=== PATIENT | female | born 1960 | race Caucasian/White ===

== ENCOUNTER 2020-07-13 09:43 | Outpatient (CLI) | payer MEDICARE, SELFPAY ==
--- NOTE | ~2020-07-13 | CT_ITS ---
EXAMINATION: CT lung screening DATE: 07/13/2020 10:12 INDICATION: Personal history of tobacco dependence, current smoker with 45 pack year history TECHNIQUE: Computed tomography (CT) of the chest was performed without intravenous contrast. The dose -length product (DLP) was 152.89 mGy-cm. Automated exposure control and iterative reconstruction tech [employer] were employed. COMPARISON: None FINDINGS: There is mild emphysema. A 2 mm nodules present in the right upper lobe on image 30. There is a 2 mm right upper lobe nodule on image 31. A 3 mm nodule is present in the right lower lobe on im age 77. There is mild dependent atelectasis. No focal airspace opacities are identified. There is no pleural effusion or pneumothorax. No pathologically enlarged thoracic lymph nodes are identified. The heart size is normal. There is subendocardial fat deposition in the left ventricular apex, consisten t with prior myocardial infarction. There is mild thoracic spondylosis. IMPRESSION: 1. Lung-RADS category 2: Benign appearance or behavior. Continue annual screening with noncontrast lo w-dose chest CT in 12 months. Reviewed, dictated and finalized at location A. IMPRESSION: 1. Lung-RADS category 2: Benign appearance or behavior. Continue annual screeni ng with noncontrast low-dose chest CT in 12 months.
== END 2020-07-13 09:44 | disposition home or self-care (01) ==
LOC: ANHIMG 09:50
PROVIDERS: PCP Physician Assistant; Visit Provider Physician Assistant
DX: F17.210 Nicotine dependence, cigarettes, uncomplicated (principal); Z12.2 Encounter for screening for malignant neoplasm of respiratory organs
CPT/HCPCS: G0297

== ENCOUNTER 2020-07-13 11:33 | Emergency (ER) | payer MEDICARE, SELFPAY ==
[2020-07-13 11:53] VITALS: BP 117/77; PULSE 108; RESP 18; TEMP 37; O2SAT 100
--- NOTE | 2020-07-13 12:07 | ED.BACK ---
HPI - Back Pain/Injury General Chief Complaint: Back Pain/Injury Stated Complaint: pain i n th buttocks History of Present Illness HPI Narrative: This a 59-year-old that comes in complaining of back pain. Patient states that she has a chronic history of back pain and she has a history of sciatica. Patient denies her sciatica shooting down her right side of her buttocks this is the first time is been more severe. Patient states that she is going to be seen by a pain doctor she is taking Flexeril for her symptoms and some Tylenol which have not resolved her pain. Patient states that it is hard for her to get up and she does not know what to do Related Data Home Medications Medication Instructions Recorded Confirmed aripiprazole [Abilify] 10 mg PO DAILY 07/13/20 07/13/20 bupropion HCl [Wellbutrin SR] 150 mg PO BID 07/13/20 07/13/20 buspirone 15 mg PO TID 07/13/20 07/13/20 clonidine HCl [Catapres] 0.1 mg PO BID 07/13/20 07/13/20 cyclobenzaprine 10 mg PO BID 07/13/20 07/13/20 duloxetine [Cymbalta] 60 mg PO DAILY 07/13/20 07/13/20 furosemide [Lasix] 40 mg PO BID 07/13/20 07/13/20 gabapentin [Neurontin] 300 mg PO TID 07/13/20 07/13/20 hydroxyzine HCl 50 mg PO QID 07/13/20 07/13/20 montelukast [Singulair] 10 mg PO DAILY 07/13/20 07/13/20 omeprazole magnesium [Prilosec OTC] 40 mg PO DAILY 07/13/20 07/13/20 simvastatin [Zocor] 20 mg PO DAILY 07/13/20 07/13/20 spironolactone [Aldactone] 50 mg PO BID 07/13/20 07/13/20 trazodone 150 mg PO HS 07/13/20 07/13/20 Allergies Allergy/AdvReac Type Severity Reaction Status Date / Time haloperidol Allergy Mild MUSCLE Unverified 05/15/18 14:43 SPASMS, TONGUE SWELLING, JERKING latex Allergy Unknown Itching Verified 07/13/20 12:00 orange Allergy Unknown Unknown Verified 07/13/20 12:00 Animal Dander Allergy Mild RESP Uncoded 05/15/18 14:43 Dust Allergy Mild SNEEZE, Uncoded 05/15/18 14:43 STUFFY NOSE, EGG WHITE Allergy Mild RESP Uncoded 05/15/18 14:43 oranges Allergy Mild Other Uncoded 05/15/18 14:45 POLLENEXTRACT Allergy Mild Unknown Uncoded 07/13/20 12:00 ANTIPSYCHOTICS Allergy Unknown Unknown Uncoded 07/13/20 12:00 EGGS, TEA, ORANGES Allergy Unknown Unknown Uncoded 07/13/20 12:00 HALDOL, BANDAIDS Allergy Unknown Unknown Uncoded 07/13/20 12:00 HALOPERIDOL LACTATE (Generic Allergy Unknown Y Uncoded 06/15/05 09:15 Allergy) Review of Systems Review of Systems: Narrative: CONSTITUTIONAL: Denies fever, chills, or sweats. EYES: Denies visual changes, redness, or discharge. ENT: Denies rhinorrhea, congestion, sore throat, or otalgia. CARDIOVASCULAR:Denies chest pain, palpitations, or edema. RESPIRATORY: Denies cough or dyspnea. GASTROINTESTINAL: Denies abdominal pain, nausea, vomiting, or diarrhea. GENITOURINARY: Denies dysuria or hematuria. SKIN:[Denies rash or itching. MUSCULOSKELETAL: Positive back pain, joint pain, or myalgia. NEUROLOGIC: Denies headache, numbness, or weakness. PSYCHIATRIC:Denies anxiety or depression [facility] Family History Family History (Updated 06/18/17 @ 11:49 by DOCTOR UNKNOWN) Mother Patient's mother is in good health Father Family history of malignant neoplasm Patient's father is Other Diabetes mellitus Family history of cardiovascular disease Social History Social History Smoking status: Heavy tobacco smoker Alcohol intake: never Gender identity (if verbalized by the patient): Female Comments At time as signature, I have reviewed and agree with nursing past medical, social, surgical and family history. Please see nursing chart for further information. There is no relevant family history pertinent to the presenting complaint. Exam Narrative: Exam Narrative: GENERAL:Well-appearing, well-nourished, and in no acute distress. HEAD:Normocephalic, atraumatic. EYES: PERRLA and EOMI. ENT: Nares clear, no rhinorrhea or epistaxis. Mucous membranes moist. NECK: Supple. CHEST: Clear to auscultati
== END 2020-07-13 12:16 | disposition home or self-care (01) ==
PROVIDERS: Emergency Provider Nurse Practitioner Family; PCP Physician Assistant
DX: M54.31 Sciatica, right side (principal); S39.012A Strain of muscle, fascia and tendon of lower back, initial encounter; X58.XXXA Exposure to other specified factors, initial encounter; F17.200 Nicotine dependence, unspecified, uncomplicated; E78.00 Pure hypercholesterolemia, unspecified; K21.9 Gastro-esophageal reflux disease without esophagitis; F41.9 Anxiety disorder, unspecified; F32.9 Major depressive disorder, single episode, unspecified; I50.9 Heart failure, unspecified
CPT/HCPCS: 99213; G0463

== ENCOUNTER → 2020-07-20 11:55 | Outpatient (CLI) | payer MEDICARE, SELFPAY ==
--- NOTE | ~2020-07-20 | XR_ITS ---
XR lumbar spine 2-3V DATE: 07/20/2020 12:21 INDICATION: Left low back pain, left sciatica TECHNIQUE: AP, lateral, coned lateral lumbosacral views COMPARISON: 03/04/2017 lumbar spine FINDINGS: Moderate osteopenia. There is grade 1 anterolisthesis at L4-5 due to degenerative change at the apophyseal joints. There is mildly severe degenerative disease at L4-5 and L5-S1. Moderate degenerative disease at L1-2, mild degenerative disease at L2-3 and L3-4. No fracture or bone destruction is evident. Included T12-L5 pedicles are intact. The sacroiliac joints are normal. IMPRESSION: Grade 1 anterolisthesis at L4-5 due to degenerative change at the apophyseal joints Multilevel degenerative disc disease, most prominent at L4-5 and L5-S1 Reviewed, dictated and finalized at location A. IMPRESSION: Grade 1 anterolisthesis at L4-5 due to degenerative change at the a pophyseal joints Multilevel degenerative disc disease, most prominent at L4-5 and L5-S1
== END ==
PROVIDERS: PCP Physician Assistant; Visit Provider Physician Assistant
DX: M51.36 Other intervertebral disc degeneration, lumbar region (principal)
CPT/HCPCS: 72100

== ENCOUNTER 2020-08-02 10:40 | Outpatient (CLI) | payer MEDICARE, SELFPAY ==
--- NOTE | ~2020-08-02 | MM_ITS ---
EXAMINATION: MM screening lucero BI w bridger HISTORY: Screening mammogram TECHNIQUE: Craniocaudal and mediolateral oblique 3-D tomosynthesis images were obtained and synthetic 2-D images were generated. CAD analysis was submitted and interpreted. COMPARISON: 07/05/2017, lateral digital screening mammogram examinations BREAST PARENCHYMAL COMPOSITION: There are scattered areas of fibroglandular density. FINDINGS: Stable mild fibroglandular asymmetry.. There is no evidence of suspicious mass, calcificati on, or architectural distortion to suggest malignancy in either breast. There has been no suspicious interval change. IMPRESSION: 1. No mammographic evidence of malignancy. 2. Recommend routine screening mammography in one year. BI-RADS Category 2: Benign finding(s). Reviewed, dictated and finalized at location A.
== END 2020-08-02 10:41 | disposition home or self-care (01) ==
LOC: ANHIMG 10:44
PROVIDERS: PCP Physician Assistant; Visit Provider Physician Assistant
DX: Z12.31 Encounter for screening mammogram for malignant neoplasm of breast (principal)
CPT/HCPCS: 77063; 77067

== ENCOUNTER 2020-09-30 10:41 | Outpatient (CLI) | payer MEDICARE, SELFPAY ==
--- NOTE | ~2020-09-30 | MR_ITS ---
EXAMINATION: MR lumbar spine wo con DATE: 09/30/2020 11:26 INDICATION: Lumbago. TECHNIQUE: Magnetic resonance imaging (MRI) of the lumbar spine was performed without intravenous con trast. Sequences included sagittal T2-weighted FSE, sagittal T2-weighted FS FSE, sagittal T1-weighted FSE, and axial T2-weighted FSE. COMPARISON: Lumbar spine MRI 03/04/2017 FINDINGS: There is 6 degrees dextrocurvature of lumbar spine. There is 4 mm retrolisthesis of L1 on L 2, L2 on L3, and L3 on L4, 6 mm anterolisthesis of L4 on L5, and 3 mm anterolisthesis of L5 on S1. Ve rtebral body heights are normal. There is moderately decreased disc height at L1-L2 and L2-L3, mildly decreased disc height at L3-L4, and moderately decreased disc height at L4-L5 and L5-S1. The distal spinal cord signal intensity is normal. The conus medullaris is at T12-L1. There is no kidney in the right renal fossa. The following disc levels are specifically discussed: L1-L2: The disc is bulging. There is moderate right and severe left facet joint osteoarthritis. There is mild right and moderate left neural foraminal stenosis. There is mild central canal stenosis. L2-L3: The disc is bulging. There is severe right and moderate left facet joint osteoarthritis. There is mild right and moderate left neural foraminal stenosis. There is mild central canal stenosis. L3-L4: The disc is bulging. There is severe bilateral facet joint osteoarthritis. There is mild bilat eral neural foraminal stenosis. There is mild central canal stenosis. L4-L5: The disc is bulging. There is severe bilateral facet joint osteoarthritis. There is moderate r ight and mild left neural foraminal stenosis. There is mild central canal stenosis. L5-S1: The disc is bulging and has an annular fissure. There is severe bilateral facet joint osteoart hritis. There is moderate bilateral neural foraminal stenosis. There is mild central canal stenosis. IMPRESSION: 1. Moderate lumbar spondylosis, worsened from 02/28/2017. 2. No kidney in right renal fossa. Reviewed, dictated and finalized at location A. ARY SPECIAL EDUCATOR
== END 2020-09-30 10:42 | disposition home or self-care (01) ==
LOC: ANHIMG 10:47
PROVIDERS: PCP Physician Assistant; Visit Provider Nurse Practitioner Family
DX: M47.817 Spondylosis without myelopathy or radiculopathy, lumbosacral region (principal); M48.07 Spinal stenosis, lumbosacral region
CPT/HCPCS: 72148

== ENCOUNTER 2021-02-06 14:15 | Outpatient (RCR) | payer MEDICARE, SELFPAY ==
--- NOTE | 2020-12-13 10:15 | PTOPEVAL ---
PHYSICAL THERAPY EVALUATION AND PLAN OF CARE 12-13-20 Thank you for referring Bailey Santiago to [facility].? She is scheduled to be seen for therapy? 2 x/week for 4 weeks. Treatments will begin with aquatic therapy, for the buoyancy effects of the water on her movement and progress to land treatments as tolerated. Please review, sign, date and return this plan of care KAI. I agree with and certify that the following plan of care is medically necessary. Referring Physician Date Attending Provider: CHRISTINA SharifPT Outpatient Evaluation Start: 12/13/20 09:10 Document 12/13/20 09:00 PAT (Rec: 12/13/20 10:15 PAT [id number]) Outpatient Past Medical History Past Medical History Source of Past Medical History Recalled from Previous Visit, Confirmed with Patient/Family Neurological History Hx Neurological Disorders No Significant History Cardiovascular History Hx Congestive Heart Failure Yes: follow with jira administrator PRN Hx Hypercholesterolemia Yes: meds Respiratory History Hx Chronic Obstructive Pulmonary Disease Yes: inhaler and meds (COPD) Hx Other Respiratory Disorders Yes: smoker Gastrointestinal History Hx Gastroesophageal Reflux Disease Yes Hx Irritable Bowel Yes Genitourinary History Hx Other Genitourinary Disorders Yes: kidney disease- stage 3; Musculoskeletal History Hx Back Pain Yes: sciatica Hx Degenerative Disk Disease Yes: lumbar Hx Other Musculoskeletal Disorders Yes: pain shoulders,hands, wrists; fibromyalgia Hematological History Hx Hematological Disorders No Significant History Endocrine History Hx Endocrine Disorders No Significant History HEENT History Hx Other HEENT Disorders Yes: chronic sinusitis Integumentary History Hx Skin Disorders No Significant History Reproductive History Hx Post Menopausal Yes Psychosocial History Hx Anxiety Yes: meds Hx Depression Yes: meds Hx Other Psychiatric Disorders Yes: working with therapist Pain History Has Past Pain Affected Your Daily Life Yes Anesthesia History Hx Anesthesia Reactions No Significant History Evaluation Information Problem Diagnosis low back pain, lumbar radiculopathy Onset Jul 2020 Subjective Information chronic low back pain; Query Text:As Reported By Patient/ receiving injections into back Family for pain; have done water exercises long time ago for her back and it helped; do some stretches for back, standing and moving around; have been going to
--- NOTE | 2021-01-10 16:27 | PCPTNOTE ---
pt called and canceled today's reeval;
--- NOTE | 2021-01-13 10:51 | PCPTNOTE ---
Patient came in, however, received a phone call & had to leave to take care of a family members. So,today's scheduled appointment had to be cancelled.
--- NOTE | 2021-01-17 09:33 | PCPTNOTE ---
Patient called & cancelled scheduled appointment this date at her appointment time stating she wasn't going to be able to make it but will be here for her appointment on .
--- NOTE | 2021-01-30 10:40 | PTOPEVAL ---
PHYSICAL THERAPY RE-EVALUATION AND UPDATED PLAN OF CARE 01-30-21 Refer to the clinical summary below, for her status today, compared to the initial evaluation. Continue PT treatment 2x/week for 4 weeks, with aquatic exercises, for the buoyancy effects of the water and ease of movement for assisting her mobility due to pain. Thank you for referring Bailey Santiago to [facility].? Please review, sign, date and return this plan of care [facility]. I agree with and certify that the following plan of care is medically necessary. Referring Physician Date Attending Provider: CHRISTINA Sharif Document 01/30/21 10:01 PAT (Rec: 01/30/21 10:39 PAT [id number]) Assessment Status Re-evaluation Subjective Information Bailey reports: like the water Query Text:As Reported By Patient/ exercises, they make her feel Family better and have less pain when get out the water; had injection recently in L low back/hip area- helped her pain ; has tried to do her home exercises, but not always get done due to too much going on and pain worse; would like to continue therapy. Pain Assessment Timing of Pain Assessment Timing of Pain Assessment Assessment Pain Scale Pain Scale Used Numeric (1 - 10) Self Report Pain Assessment Bilateral Back Reported Pain Level 5 Pain Description Aching,Sharp Radicular Pain Location L LE-to ankle,varies- but is less; R LE- no pain Pain Frequency Chronic,Continuous Other Pain Description sharp pain if move wrong way; Lowest Pain Intensity 3 Greatest Pain Intensity 8 Pain Aggravating Factors Walking,Weight Bearing/ Standing Pain Behaviors Anxious,Guarding Pain Score Pain Score 5: Self Report Additional Pain Score Comments Oswestry self assessment functional score 52% limitation in activity level; have not been doing much activity- clean house once/ week; when stand- pain immediate, due to pain in feet, back and L hip; Interventions Used Interventions Used By Clinicians Exercise Pain Relief Interventions Used By Inactivity/Rest,Medication, Patient Position Change Other Alleviating Interventions tylenol and ibuprofen daily; Lower Extremity Range of Motion General Lower Extremity Range of Motion Gross Lower Extremity Range of Motion supine R hip flexion 95', IR Comments
--- NOTE | 2021-02-09 13:50 | PCPTNOTE ---
Patient did not show up for scheduled appointment this date; called patient who answered the phone stating her mother Saturday forgot to call and cancel appointment due to arrangements.
--- NOTE | 2021-02-14 10:11 | PCPTNOTE ---
Patient called & cancelled scheduled appointment this date due to not feeling well.
--- NOTE | 2021-02-16 11:16 | PCPTNOTE ---
Patient called & cancelled scheduled appointment this date due to not feeling well.
--- NOTE | 2021-02-20 11:45 | PCPTNOTE ---
Patient did not show up for scheduled appointment this date; called and left voicemail for reminder call for next appointment 02/23 @ 11am.
--- NOTE | 2021-02-23 11:33 | PCPTNOTE ---
Patient called & cancelled all scheduled appointments at this time stating she has to much going on in her personal life to stay consistent with therapy. Understands she will need a new PT order to return when ready. PT notified.
--- NOTE | 2021-02-24 16:03 | PCPTNOTE ---
PHYSICAL THERAPY DISCHARGE 02-24-21 Attending Provider: ENE Sharif- Patient:Bailey Santiago Date of :1960 Ms. Santiago called yesterday and canceled her remaining PT appointments due to have too much going on at this time. Bailey has received 6 PT sessions, from December 13 to February 06, for the diagnosis of lumbar radiculopathy. She called and canceled 5 and did not show for 2 appointments. The goals were not assessed. Thank you for referring Ms. Santiago to [facility]. Please review, sign, date and return this discharge summary KAI. I have been updated about the patient's current status and I agree with discharge from the above service at this time. Referring Physician Date
== END 2021-02-27 10:31 | disposition home or self-care (01) ==
LOC: ANHPT 14:15
PROVIDERS: PCP Physician Assistant; Visit Provider Nurse Practitioner Family
DX: M54.5 Low back pain (principal); M54.16 Radiculopathy, lumbar region
CPT/HCPCS: 97110; 97113; 97161

== ENCOUNTER → 2021-09-19 10:01 | Outpatient (CLI) | payer MEDICARE, SELFPAY ==
--- NOTE | ~2021-09-19 | CT_ITS ---
EXAMINATION: CT lung screening DATE: 09/19/2021 10:21 INDICATION: Nicotine dependence TECHNIQUE: Computed tomography (CT) of the chest was performed without intravenous contrast. The dose -length product was 149.79 mGy-cm. Automated exposure control and iterative reconstruction technique were employed. COMPARISON: CT dated 07/13/2020 FINDINGS: Heart size normal. No thoracic lymphadenopathy. No significant pleural or pericardial effus ion. Stable 2-3 mm bilateral nodules, largest measuring 3 mm in the right lower lobe, image 80. No en dobronchial lesions. There is mild emphysema. Mild thoracic spondylosis. The upper abdomen is grossly unremarkable. IMPRESSION: 1. Lung-RADS category 2: Benign appearance or behavior. Continue annual screening with noncontrast lo w-dose chest CT in 12 months. Reviewed, dictated and finalized at location A. UNICATIONS OFFICER IMPRESSION: 1. Lung-RADS category 2: Benign appearance or behavior. Continue annual screeni ng with noncontrast low-dose chest CT in 12 months.
== END ==
PROVIDERS: PCP Physician Assistant; Visit Provider Physician Assistant
DX: F17.210 Nicotine dependence, cigarettes, uncomplicated (principal)
CPT/HCPCS: 71271

== ENCOUNTER 2022-02-22 14:41 | Outpatient (CLI) | payer MEDICARE, SELFPAY ==
--- NOTE | ~2022-02-22 | US_ITS ---
EXAMINATION: US venous doppler [facility] DATE: 02/22/2022 15:44 INDICATION: Left calf pain. TECHNIQUE: Grayscale ultrasound images without and with compression and Doppler ultrasound images of the left lower extremity veins were obtained. COMPARISON: None. FINDINGS: The visualized portions of left common femoral vein, profunda (deep) femoral vein, femoral vein, popl iteal vein, peroneal veins, posterior tibial veins, and greater saphenous vein outflow are patent. Th ere is thrombus in left lesser saphenous vein. IMPRESSION: 1. No deep venous thrombosis. 2. Thrombus in left lesser saphenous vein, which is a superficial vein. Reviewed, dictated and finalized at location A.
== END 2022-02-22 14:42 | disposition home or self-care (01) ==
LOC: ANHIMG 14:42
PROVIDERS: PCP Physician Assistant; Visit Provider Physician Assistant
DX: M79.662 Pain in left lower leg (principal); I82.812 Embolism and thrombosis of superficial veins of left lower extremity
CPT/HCPCS: 93971

== ENCOUNTER 2022-04-17 11:15 | Outpatient (RCR) | payer MEDICARE, SELFPAY ==
--- NOTE | 2022-04-03 16:02 | PTOPEVAL ---
PHYSICAL THERAPY INITIAL EVALUATION. Thank you for referring Bailey Santiago to [facility].? The patient is scheduled to be seen for therapy?1-2 x/week for 6 weeks. Please review, sign, date and return this plan of care KAI. I agree with and certify that the following plan of care is medically necessary. Referring Physician Date Attending Provider: Muna Calixto, PA *PT Outpatient Evaluation Start: 04/03/22 Evaluation Information Diagnosis L sided low back pain Onset chronic Subjective Information Pt states she has chronic low Query Text:As Reported By Patient/ back pain that also causes her Family hip and knee to hurt on the L side. She states she has terrible arthritis in her entire back. She states she has sciatica that is terrible. She is seeing pain management but is unable to take any medication other than Tylenol due to being on a blood thinners due to a current DVT. Pt states she sits and sleeps in a recliner but does get up frequently throughout the day. Pt states she take a muscle relaxer daily and Tylenol every 4 hours. She states she also has fibromyalgia. Pt states she has sit for 10 minutes without pain. Prior Level of Function Home Type House,Single Level Environmental Barriers Stairs, 2-4 Pain Assessment Self Report Pain Assessment Lower Back Reported Pain Level 5 Pain Description Aching,Radiating,Tightness Pain Radiation Left Leg Pain Frequency Chronic,Intermittent Lowest Pain Intensity 3 Greatest Pain Intensity 8 Pain Aggravating Factors ADL's,Exercise/Activity, Lifting,Walking Pain Relief Interventions Used By Medication Patient Lumbar ROM Lumbar Flexion (0-90) 60 Lumbar Flexion Active Ankle Lumbar Extension (0-40) 30 Lateral Flexion reaches to 3in above lateral Query Text:Active Hands to: knee joint line carleen Lateral Rotation Right (0-45) 20 Lateral Rotation Left (0-45) 20 Lower Extremity Range of Motion General Lower Extremity Range of Motion WFL/Left,WFL/Right Lower Extremity Muscle Strength Testing Gross Lower Extremity Strength L hip flex
--- NOTE | 2022-04-24 11:25 | PCPTNOTE ---
Patient called & cancelled scheduled appointment this date due to not having transportation.
--- NOTE | 2022-05-01 10:16 | PCPTNOTE ---
Patient called & cancelled scheduled appointment this date due to not feeling well
--- NOTE | 2022-05-08 11:44 | PCPTNOTE ---
Attending Provider: Muna Calixto, PA Patient:Bailey Santiago Date of :1960 PHYSICAL THERAPY DISCHARGE SUMMARY. Patient called the clinic this morning and states she would like to cancel her remaining appointments and be discharged from therapy at this time. She states it is too difficult for her to make it to therapy. Home health PT could be a good option for this patient. Patient?s initial visit was on 03/28/2022 and she had a total of 2 visits. The goals have been not met. Thank you for referring this patient to [facility]. Please review, sign, date and return this discharge summary KAI. I have been updated about the patient's current status and I agree with discharge from the above service at this time. Referring Physician Date
== END 2022-05-08 14:24 | disposition home or self-care (01) ==
LOC: ANHPT 11:15
PROVIDERS: PCP Physician Assistant; Visit Provider Physician Assistant
DX: M54.42 Lumbago with sciatica, left side (principal)
CPT/HCPCS: 97110; 97112; 97161; 97530

== ENCOUNTER 2022-08-08 12:26 | Outpatient (CLI) | payer MEDICARE, SELFPAY ==
--- NOTE | ~2022-08-08 | US_ITS ---
EXAMINATION: US venous doppler [facility] DATE: 08/08/2022 13:22 INDICATION: Acute superficial venous thrombosis of the left lower limb TECHNIQUE: Ruiz scale images without and with compression and Doppler images of the left lower extrem ity veins were obtained. COMPARISON: 02/22/2022 FINDINGS: The left common femoral vein, profunda femoral vein, femoral vein, popliteal vein, peroneal trunk, posterior tibial veins, and greater saphenous vein are patent. IMPRESSION: 1. Patent left lower extremity veins. No evidence of deep venous thrombosis. Reviewed, dictated and finalized at location A.
== END 2022-08-08 12:27 | disposition home or self-care (01) ==
PROVIDERS: PCP Physician Assistant; Visit Provider Internal Medicine Medical Oncology
DX: I82.812 Embolism and thrombosis of superficial veins of left lower extremity (principal)
CPT/HCPCS: 93971

== ENCOUNTER 2023-05-07 10:37 | Outpatient (CLI) | payer MEDICARE, SELFPAY ==
--- NOTE | ~2023-05-07 | CT_ITS ---
EXAMINATION: CT lung screening DATE: 05/07/2023 11:07 INDICATION: Personal history of nicotine dependence, current smoker with 45 pack year history TECHNIQUE: Computed tomography (CT) of the chest was performed without intravenous contrast. The dose -length product (DLP) was 126.68 mGy-cm. Automated exposure control and iterative reconstruction tech [employer] were employed. COMPARISON: 09/19/2021 FINDINGS: There is mild emphysema. There are stable right lung nodules measuring up to 3 mm. The lung s are free of acute opacities. No pleural effusion or pneumothorax. No pathologically enlarged thorac ic lymph nodes are identified. The heart size is normal. Subendocardial fat deposition in the left ve ntricular apex is consistent with prior myocardial infarction. There is moderate thoracic spondylosis . IMPRESSION: 1. Lung-RADS category 2: Benign appearance or behavior. Continue annual screening with noncontrast lo w-dose chest CT in 12 months. Reviewed, dictated and finalized at location L. IMPRESSION: 1. Lung-RADS category 2: Benign appearance or behavior. Continue annual screeni ng with noncontrast low-dose chest CT in 12 months.
== END 2023-05-07 10:38 | disposition home or self-care (01) ==
PROVIDERS: PCP Physician Assistant; Visit Provider Physician Assistant
DX: Z12.2 Encounter for screening for malignant neoplasm of respiratory organs (principal); F17.210 Nicotine dependence, cigarettes, uncomplicated
CPT/HCPCS: 71271

== ENCOUNTER 2023-07-17 14:05 | Outpatient (CLI) | payer MEDICARE, SELFPAY ==
--- NOTE | ~2023-07-17 | MM_ITS ---
EXAMINATION: MM screening lucero BI w bridger HISTORY: Screening mammogram TECHNIQUE: Craniocaudal and mediolateral oblique 3-D tomosynthesis images were obtained and synthetic 2-D images were generated. CAD analysis was submitted and interpreted. COMPARISON: 08/02/2020, 07/05/2017 bilateral screening mammogram examinations BREAST PARENCHYMAL COMPOSITION: There are scattered areas of fibroglandular density. FINDINGS: Stable mild fibroglandular asymmetry. There is no evidence of suspicious mass, calcificatio n, or architectural distortion to suggest malignancy in either breast. There has been no suspicious i nterval change. IMPRESSION: 1. No mammographic evidence of malignancy. 2. Recommend routine screening mammography in one year. BI-RADS Category 2: Benign finding(s). Reviewed, dictated and finalized at location A.
== END 2023-07-17 14:06 | disposition home or self-care (01) ==
PROVIDERS: PCP Physician Assistant; Visit Provider Physician Assistant
DX: Z12.31 Encounter for screening mammogram for malignant neoplasm of breast (principal)
CPT/HCPCS: 77063; 77067

== ENCOUNTER 2023-10-23 11:46 | Outpatient (CLI) | payer MEDICARE, SELFPAY ==
--- NOTE | ~2023-10-23 | XR_ITS ---
EXAMINATION:XR cervical spine 4-5V DATE: 10/23/2023 12:17 INDICATION: Neck pain TECHNIQUE: AP, lateral, and odontoid views of the cervical spine are provided. COMPARISON: None FINDINGS: Alignment is normal. The odontoid process is intact. No fracture is identified. The vertebr al body heights are maintained. There is mild loss of intervertebral disc space height throughout the cervical spine. Small degenerative osteophytes project from the anterior endplates of multiple verte bral bodies. There is multilevel severe facet and uncovertebral joint osteoarthritis. Prevertebral so ft tissues are normal. IMPRESSION: 1. Moderate to severe cervical spondylosis without acute findings. Reviewed, dictated and finalized at location B. T PLANNING INTERN
--- NOTE | ~2023-10-23 | XR_ITS ---
AP and lateral views of the left hip Clinical history: Pain Findings: No acute fracture or dislocation is seen. Osseous alignment is anatomic. The left hip joint and left SI joint are preserved. Soft tissues are unremarkable. Impression: No significant abnormality is seen. Reviewed, dictated and finalized at [facility]. CLERK PASSENGER Impression: No significant abnormality is seen.
--- NOTE | ~2023-10-23 | XR_ITS ---
EXAMINATION: XR lumbar spine 2-3V DATE: 10/23/2023 12:17 INDICATION: Low back pain TECHNIQUE: Anteroposterior and lateral views of the lumbar spine, and cone-down lateral view of the l umbosacral junction were obtained. COMPARISON: 07/20/2020 FINDINGS: There are 6 mm of anterolisthesis of L4 on L5. There is moderate loss of intervertebral dis c space height at L4-5 and L5-S1. The vertebral body heights are maintained. Small degenerative osteo phytes project from the anterior endplates of multiple vertebral bodies. IMPRESSION: 1. Moderate lumbar spondylosis with interval worsening at L4-5. Reviewed, dictated and finalized at location B. OGICAL MODELER
== END 2023-10-23 11:47 | disposition home or self-care (01) ==
PROVIDERS: PCP Physician Assistant; Visit Provider Nurse Practitioner Family
DX: M54.2 Cervicalgia (principal); M54.50 Low back pain, unspecified; M25.552 Pain in left hip; M43.06 Spondylolysis, lumbar region; M43.02 Spondylolysis, cervical region
CPT/HCPCS: 72050; 72100; 73502

== ENCOUNTER 2023-11-28 09:51 | Outpatient (CLI) | payer MEDICARE, SELFPAY ==
--- NOTE | ~2023-11-28 | MR_ITS ---
EXAMINATION: MR cervical spine wo con DATE: 11/28/2023 10:51 INDICATION: Cervicalgia TECHNIQUE: Magnetic resonance imaging (MRI) of the cervical spine was performed without intravenous c ontrast. Sequences included sagittal T2-weighted FSE, sagittal T2-weighted FS FSE, sagittal T1-weight ed FSE, axial MERGE and axial T2-weighted FSE. COMPARISON: Cervical spine radiographs dated 10/23/2023 FINDINGS: Mild cervicothoracic levocurvature. Sagittal alignment is normal. Bone alignment is normal. Vertebra l body heights are normal. Bone marrow signal intensity is normal. Annular fissure without disc heig ht loss at C3-C4. Additional annular fissures with mild disc height loss at C5-C6 and C6-C7. Mild dis c height loss at T2-T3 and T3-T4. Cord signal intensity is normal. Cervical soft tissues are unremark able. The following disc levels are specifically discussed: C2-C3: Small right paracentral disc protrusion. There is no uncovertebral joint osteoarthritis. There is moderate left and severe right facet joint osteoarthritis. There is mild to moderate right neural foraminal stenosis. There is no central canal stenosis. C3-C4: Disc is bulging. There is mild left and moderate right uncovertebral joint osteoarthritis. The re is severe bilateral facet joint osteoarthritis. There is multilevel moderate right and moderate le ft neural foraminal stenosis. There is mild central canal stenosis. C4-C5: Disc is bulging. There is mild left and moderate right uncovertebral joint osteoarthritis. The re is moderate to severe left and severe right facet joint osteoarthritis. There is mild left and mod erate right neural foraminal stenosis. There is mild central canal stenosis. C5-C6: Disc is bulging, eccentric to the left with mild flattening of the left ventral surface of the cord There is mild right and moderate left uncovertebral joint osteoarthritis. There is moderate lef t and severe right facet joint osteoarthritis. There is mild to moderate bilateral neural foraminal s tenosis. There is mild central canal stenosis. C6-C7: Disc is bulging. There is moderate bilateral uncovertebral joint osteoarthritis. There is mild left and moderate to severe right facet joint osteoarthritis. There is mild bilateral neural foramin al stenosis. There is mild central canal stenosis. C7-T1: Mild right paracentral disc protrusion. There is mild left uncovertebral joint osteoarthritis. There is mild left and severe right facet joint osteoarthritis. There is mild left and moderate righ t neural foraminal stenosis. There is no central canal stenosis. IMPRESSION: 1. Mild cervical spondylosis with severe bilaterally multilevel right-sided predominant facet osteoar thritis. Reviewed, dictated and finalized at location A. IONEER ART IMPRESSION: 1. Mild cervical spondylosis with severe bilaterally multilevel right-sided pre dominant facet osteoarthritis.
--- NOTE | ~2023-11-28 | MR_ITS ---
EXAMINATION: MR lumbar spine wo con DATE: 11/28/2023 10:52 INDICATION: Lumbago. TECHNIQUE: Magnetic resonance imaging (MRI) of the lumbar spine was performed without intravenous con trast. Sequences included sagittal T2-weighted FSE, sagittal T2-weighted FS FSE, sagittal T1-weighted FSE, and axial T2-weighted FSE. COMPARISON: Lumbar spine MRI 09/30/2020 FINDINGS: There is 7 degrees dextrocurvature of lumbar spine. There is 3 mm retrolisthesis of L1 on L 2, L2 on L3, and L3 on L4 and 5 mm anterolisthesis of L4 on L5 and L5 on S1. There is mild chronic an terior wedging of T12 vertebral body. There is moderately decreased disc height at L1-L2 and L2-L3, m ildly decreased disc height at L3-L4, moderately decreased disc height at L4-L5, and severely decreas ed disc height at L5-S1. The distal spinal cord signal intensity is normal. The conus medullaris is a t T12-L1. The following disc levels are specifically discussed: L1-L2: The disc is bulging and has an annular fissure. There is mild right and severe left facet join t osteoarthritis. There is mild right and moderate left neural foraminal stenosis. There is mild cent ral canal stenosis. L2-L3: The disc is bulging. There is severe right and moderate left facet joint osteoarthritis. There is mild right and moderate left neural foraminal stenosis. There is mild central canal stenosis. L3-L4: The disc is bulging. There is severe bilateral facet joint osteoarthritis. There is mild bilat eral neural foraminal stenosis. There is mild central canal stenosis. L4-L5: The disc is bulging and has an annular fissure. There is severe bilateral facet joint osteoart hritis. There is moderate right and mild left neural foraminal stenosis. There is mild central canal stenosis. L5-S1: The disc is bulging and has an annular fissure. There is severe bilateral facet joint osteoart hritis. There is moderate bilateral neural foraminal stenosis. There is mild central canal stenosis. IMPRESSION: 1. Severe lumbar spondylosis with interval worsening at L5-S1. Reviewed, dictated and finalized at location E. F RESOURCE OFFICER
== END 2023-11-28 09:52 ==
LOC: MICIMG 09:53
PROVIDERS: PCP Physician Assistant; Visit Provider Nurse Practitioner Family
DX: M47.816 Spondylosis without myelopathy or radiculopathy, lumbar region (principal); M47.812 Spondylosis without myelopathy or radiculopathy, cervical region
CPT/HCPCS: 72141; 72148

== ENCOUNTER 2024-01-16 10:15 | Outpatient (RCR) | payer MEDICARE, SELFPAY ==
--- NOTE | 2023-12-24 13:27 | OPREHPOC ---
Outpatient Therapy Plan of Care This is a Multidisciplinary Plan of Care that may contain components documented by all disciplines (PT, OT, and ST.) PT Problem 1 PT Problem #1 Knowledge Deficit PT Goal 1 Goal 1* indep with HEP on land and in water PT Problem 2 PT Problem #2 Pain PT Goal 1 Goal 1* pt report generalized pain rating of 6/10 at worst 2* self assessment Oswestry for overall pain rating of 48% limitation in activity level PT Problem 3 PT Problem #3 Impaired Strength PT Goal 1 Goal increase strength of trunk and legs, to improve mobility and activity tolerance; and position of trunk 1* pt tolerate 35 minutes of aquatic activity 2* 2 minute walking test distance of 450' 3* supine R and L LE exercises x 20 reps
--- NOTE | 2023-12-24 13:27 | PTOPEVAL1 ---
Assessment and note entered by Swetha Schmitt, PT Evaluation Information Assessment Status Evaluation Diagnosis aquatic therapy for cervicalgia and low back pain Onset Aug 2023 Subjective Information gradual increase in her chronic pain, getting worse; received trigger point injection into L buttock last week and it has decreased her pain; have done aquatic therapy in the past and liked it Activity: live alone, do all in home and self care tasks; slow with things and pain increases; have not been doing my exercises at home; had recent therapy for neck and back--stretching and moving exercises. GOAL: want to keep moving, with as little pain as possible; Reported Pain Level Pain Score Self Report Additional Pain Score Comments overall pain--neck, back, feet, arms; intermittent at worst into both legs to feet; prior to pain injection into L hip: -06/20 pain increase: increase activity level; pain decrease: reported activity tolerance with home activities 15- 30 min, then have to sit down due to pain is not a good sleeper in general; Assessment PT Clinical Summary Bailey has the diagnosis of neck and back, chronic pain. Her history includes COPD and fibromyalgia. She has completed land therapy and has orders now for aquatic therapy. She reports having aquatic therapy in the past and it helped her. Pain is limiting her activity tolerance with home chores to about 15-30 minute tolerance. With the evaluation, her self assessment Oswestry score is 58% limitation in activity level; 2 minute walking test distance is 380'; weakness of trunk and LE's with supine and standing exercises ; poor standing position of her neck and trunk/ hips; cervical pain increases with all cervical motions; tightness of both hamstrings. Skilled PT services are indicated for aquatic therapy, to increase scapular, trunk and hip strength; increase flexibility of h
--- NOTE | 2024-01-14 13:51 | PCPTNOTE ---
Pts appt was canceled due to providers absence.
--- NOTE | 2024-01-20 08:08 | PCPTNOTE ---
pt called and canceled today's appt due to illness.
--- NOTE | 2024-01-23 16:17 | PCPTNOTE ---
pt called and canceled today's appt due to illness.
--- NOTE | 2024-02-26 10:53 | PTOPDC ---
Assessment and note entered by Swetha Schmitt, PT Discharge Information Assessment Status Discharge - Pt Not Present Diagnosis aquatic therapy for cervicalgia and low back pain Onset Aug 2023 Assessment PT Clinical Summary Bailey received 4 PT sessions, from Dec 24 to January . She called/canceled 2 appointments. She will be discharged at this time due to not attending PT. The goals were not assessed. Plan of Care PT Services Indicated No
== END 2024-02-26 11:15 | disposition home or self-care (01) ==
LOC: ANHPT 10:15
PROVIDERS: PCP Nurse Practitioner Family; Visit Provider Nurse Practitioner Family
DX: M54.50 Low back pain, unspecified (principal); M54.2 Cervicalgia
CPT/HCPCS: 97110; 97113; 97162

== ENCOUNTER 2024-01-21 14:02 | Outpatient (CLI) | payer MEDICARE, SELFPAY ==
--- NOTE | ~2024-01-21 | US_ITS ---
EXAMINATION: US art doppler w press LE BI DATE: 01/21/2024 14:54 INDICATION: Peripheral arterial occlusive disease with claudication TECHNIQUE: Segmental pressures and plethysmographic and Doppler waveforms of the brachial and lower e xtremity arteries were obtained. COMPARISON: None. FINDINGS: Right and left brachial artery pressures of 119 mm Hg and 131 mm Hg, respectively, are concordant (no rmal difference <= 30 mmHg). The right and left high-thigh pressure indices are 1.28 and 1.26, respec tively (normal > 1.2). The right ankle-brachial index (ZION) is 1.09 (normal >= 0.9-1). The right great toe-brachial index (T BI) is 0.57 (normal >= 0.6-0.8). The right lower extremity segmental pressure gradients are normal (n ormal gradients <= 20-30 mmHg between adjacent levels on the same leg or the same levels on the two l egs). Arterial waveforms are triphasic at the right common femoral artery and biphasic at the more di stal arteries with brisk systolic upstrokes throughout. The left ZION is 1.13. The left TBI is 0.47. The left lower extremity segmental pressure gradients are normal. Arterial waveforms are biphasic with brisk systolic upstrokes throughout the arteries of the left lower limb. IMPRESSION: 1. Mild arterial occlusive disease to bilateral lower limbs with normal bilateral ABIs and mildly dec reased bilateral TBIs. Reviewed, dictated and finalized at location L. IMPRESSION: 1. Mild arterial occlusive disease to bilateral lower limbs with normal bilater al ABIs and mildly decreased bilateral TBIs.
== END 2024-01-21 14:03 | disposition home or self-care (01) ==
LOC: ANHIMG 14:03
PROVIDERS: PCP Nurse Practitioner Family; Visit Provider Podiatrist Foot & Ankle Surgery
DX: I73.89 Other specified peripheral vascular diseases (principal)
CPT/HCPCS: 93923

== ENCOUNTER 2024-06-24 13:34 | Outpatient (CLI) | payer MEDICARE, SELFPAY ==
--- NOTE | ~2024-06-24 | CT_ITS ---
EXAMINATION: CT lung screening DATE: 06/24/2024 13:50 INDICATION: Nicotine dependence TECHNIQUE: Computed tomography (CT) of the chest was performed without intravenous contrast. Addition al 3D reconstructions utilizing coronal maximum intensity projection (MIP) were performed. Automated exposure control and iterative reconstruction technique were employed. The dose-length product was 13 1.46 mGy-cm. COMPARISON: 05/07/2023 FINDINGS: Unchanged 5 x 3 mm and 4 x 2 mm nodules in the posterior basilar right lower lobe. There are also cou ple unchanged 2-3 mm nodules in the left upper lobe. No new or enlarging pulmonary nodules. Diffuse m ild bronchiectasis. Mild dependent atelectasis in bilateral lower lobes. No pleural effusion. Heart s ize is normal. No pericardial effusion. Thoracic aorta is normal in caliber. Normal anatomic variant retroesophageal aberrant right subclavian artery. No pathologically enlarged thoracic lymphadenopathy . 3.7 x 1.9 x 2.6 cm submucosal lipoma at the hepatic flexure of the colon. Mild thoracic and moderat e lower cervical and upper lumbar spondylosis. IMPRESSION: 1. Lung-RADS category 2: Benign appearance or behavior. Continue annual screening with noncontrast lo w-dose chest CT in 12 months. Reviewed, dictated and finalized at location A. IMPRESSION: 1. Lung-RADS category 2: Benign appearance or behavior. Continue annual screeni ng with noncontrast low-dose chest CT in 12 months.
== END 2024-06-24 13:35 | disposition home or self-care (01) ==
LOC: ANHIMG 13:35
PROVIDERS: PCP Physician Assistant; Visit Provider Physician Assistant
DX: Z12.2 Encounter for screening for malignant neoplasm of respiratory organs (principal); Z87.891 Personal history of nicotine dependence
CPT/HCPCS: 71271

== ENCOUNTER 2024-09-29 10:30 | Outpatient (CLI) | payer MEDICARE, SELFPAY ==
--- NOTE | ~2024-09-29 | MM_ITS ---
EXAMINATION: MM screening lucero BI w bridger HISTORY: Screening mammogram TECHNIQUE: Craniocaudal and mediolateral oblique 3-D tomosynthesis images were obtained and synthetic 2-D images were generated. CAD analysis was submitted and interpreted. COMPARISON: 07/17/2023, 08/02/2020 BREAST PARENCHYMAL COMPOSITION:Not Dense. The breasts are almost entirely fatty FINDINGS: Stable right subareolar density/mass. No suspicious mass, calcification, or architectural d istortion are identified in either breast to suggest malignancy. There has been no suspicious interva l change. IMPRESSION: No mammographic evidence of malignancy. Recommend routine screening mammography in one year. BI-RADS Category 2: Benign finding(s). Reviewed, dictated and finalized at location M. ICAL INVESTIGATOR
== END 2024-09-29 10:31 | disposition home or self-care (01) ==
LOC: ANHIMG 10:32
PROVIDERS: PCP Physician Assistant; Visit Provider Physician Assistant
DX: Z12.31 Encounter for screening mammogram for malignant neoplasm of breast (principal)
CPT/HCPCS: 77063; 77067